=== PATIENT | female | born 1990 | race Caucasian/White ===

== ENCOUNTER 2018-10-03 14:58 | Emergency (ER) | payer SELFPAY ==
[~2018-10-03] VITALS: Ht 157.5 cm; Wt 68.0 kg
[2018-10-03 15:05] VITALS: BP_SYST 128
[2018-10-03 15:53] VITALS: BP_SYST 128
== END 2018-10-03 15:54 | disposition home or self-care (01) ==
LOC: SED 14:58
DX: S90.32XA Contusion of left foot, initial encounter (principal); R03.0 Elevated blood-pressure reading, without diagnosis of hypertension; W19.XXXA Unspecified fall, initial encounter; Y93.89 Activity, other specified; Y92.69 Other specified industrial and construction area as the place of occurrence of the external cause; Y99.8 Other external cause status
CPT/HCPCS: 99283